=== PATIENT | female | born 1990 | race Caucasian/White ===

== ENCOUNTER 2016-05-31 11:06 | Emergency (ER) | payer OTHER ==
--- NOTE | 2016-05-31 13:49 | DIAGNOSTIC IMAGING REPORT ---
PROCEDURE: US COMPLETE PELVIC W/TRANSVAG INDICATION: PELVIC PAIN TECHNIQUE: Transabdominal and endovaginal jeffries scale and color Doppler sonographic images of the female pelvis were obtained. COMPARISON: None. FINDINGS: TRANSABDOMINAL SCANS: The uterus is of normal size 5.4 x 4.1 x 3.5 cm Kidneys are normal. TRANSVAGINAL SCANS: The uterus is anteverted. Myometrium is normal. The endometrium measures 5.6 mm. Right ovary is normal measuring 3.8 x 1.6 x 1.8 cm The left ovary is normal measuring 2.3 x 1.5 x 1.3 cm. Good flow is present in both ovaries. There is a trace of free fluid. IMPRESSION: 1. Normal uterus and ovaries and kidneys.
--- NOTE | 2016-05-31 14:25 | ED CLINICAL REPORT ---
Clinical Report - Physicians/Mid Levels [facility] [address] [place] [address] 05/31/2016 11:08 Patient: DEBRA DYSON Arrived- By private vehicle. Historian- patient. HISTORY OF PRESENT ILLNESS Chief Complaint: PELVIC PAIN. This started past 2 days and still present. It was gradual in onset and has been constant but is not gone now. The symptoms are described as moderate. Modifying factors- (worsened by nothing. no relieving factors). The patient has had left-sided pelvic pain. No flank pain, missed period(s), vaginal discharge, genital lesions or pain with urination. No urinary frequency. Sexually active. Similar symptoms previously: None. Recent medical care: Not recently seen/assessed. REVIEW OF SYSTEMS No vomiting, diarrhea, fever, difficulty breathing or chest pain. She has had skin rash. All systems otherwise negative, except as recorded above. PAST HISTORY See nurses notes. Additional Surgeries: no known surgeries. Medications: Control Pills 1 pill, daily. Spironolactone Oral, at bedtime (Takes for acne). Allergies: No Known Drug Allergy. SOCIAL HISTORY Never smoker. No alcohol use or drug use. No recent travel. Is a local resident. ADDITIONAL NOTES The nursing notes have been reviewed. PHYSICAL EXAM Vital Signs: 05/31/2016 11:21 BP: 113/76. HR: 81. RR: 16. O2 saturation: 98%. Temp: 99.5 F. Pain level now: 8/10. Blood pressure normal. Oxygen saturation normal. Appearance: Alert. Oriented X3. No acute distress. HEENT: Normal external inspection. ENT: Pharynx normal. Neck: Neck supple. CVS: Heart sounds normal. Respiratory: No respiratory distress. Breath sounds normal. Chest nontender. Abdomen: Soft and nontender. Bowel sounds normal. No mass. : External inspection normal. Speculum exam normal. Bimanual exam normal. (Exam performed with ED devulcanizer head Valeria). Skin: Skin warm and dry. Normal skin color. No rash. Normal skin turgor. Extremities: Extremities nontender. No lower extremity edema. LABS, X-RAYS, AND EKG Pelvic Sonogram: PROCEDURE: US COMPLETE PELVIC W/TRANSVAG INDICATION: PELVIC PAIN TECHNIQUE: Transabdominal and endovaginal jeffries scale and color Doppler sonographic images of the female pelvis were obtained. COMPARISON: None. FINDINGS: TRANSABDOMINAL SCANS: The uterus is of normal size 5.4 x 4.1 x 3.5 cm Kidneys are normal. TRANSVAGINAL SCANS: The uterus is anteverted. Myometrium is normal. The endometrium measures 5.6 mm. Right ovary is normal measuring 3.8 x 1.6 x 1.8 cm The left ovary is normal measuring 2.3 x 1.5 x 1.3 cm. Good flow is present in both ovaries. There is a trace of free fluid. IMPRESSION: 1. Normal uterus and ovaries and kidneys. Laboratory Tests: UA-Culture if indicated: (NII: 05/31/2016 11:30) ( [facility] 05/31/2016 11:58) Final results Test Result Flag Units (Reference) URINE COLOR YELLOW URINE APPEARANCE CLEAR URINE GLUCOSE NEGATIVE (NEGATIVE) URINE BILIRUBIN NEGATIVE (NEGATIVE) URINE KETONE NEGATIVE (NEGATIVE) URINE SPECIFIC GRAVITY <= 1.005 L (1.010-1.030) URINE PH 6.0 (5.0-8.0) URINE PROTEIN NEGATIVE (NEGATIVE) URINE UROBILINOGEN 0.2 EU/dL (0.2-1.0) URINE NITRITE NEGATIVE (NEGATIVE) URINE BLOOD NEGATIVE (NEGATIVE) URINE LEUK ESTERASE POSITIVE (NEGATIVE) URINE RBC NONE SEEN rbc/hpf (0-1) URINE WBC 1-3 wbc/hpf (0-1) URINE EPITHELIAL CELLS 3-5 EPI/hpf (0-5) URINE BACTERIA FEW (1+) (NONE SEEN) URINE COMMENT CULTURE INDICATED URINE CULTURES ARE SET-UP BASED ON THE FOLLOWING CRITERIA:POSITIVE NITRITEPOSITIVE LEUKOCYTE ESTERASEGREATER THAN 10 WHITE BLOOD CELLSMODERATE (2+) OR GREATER BACTERIA Urine: (NII: 05/31/2016 11:30) ( [facility] 05/31/2016 11:51) Final results Test Result Flag Units (Reference) URINE NEGATIVE CBC w Diff: (NII: 05/31/2016 12:05) ( MsgRcvd 05/31/2016 12:32) Final results Test Result Flag Units (Reference) WHITE BLOOD COUNT 6.5 K/uL (4.5-11.5) RED BLOOD COUNT 4.86 M/uL (4.00-5.20) HEMOGLOBIN 13.8 gm/dL (12.0-16.0) HEMATOCRIT 41.9 % (36.0-46.0) MEAN CELL VOLUME 86 fL (80-100) MEAN CORPUSCULAR HGB 29 pg (26-34) MEAN CORPUSCULAR HGB CONC 33 g/dL (31-37) RED CELL DISTRIBUTION WIDTH 13.3 % (11.6-14.8) PLATELET COUNT 289 K/uL (150-400) LYMPH % 43.3 H % (25-40) MONO % 4.5 % (3-14) GRANULOCYTE % 52.2 L (53-90) CMP: (NII: 05/31/2016 12:05) ( MsgRcvd 05/31/2016 12:57) Final results Test Result Flag Units (Reference) GLUCOSE 93 mg/dL (70-110) BUN 12 mg/dL (7-18) CREATININE 0.5 L mg/dL (0.6-1.3) Estimated GFR >60 mL/min Estimated GFR- >60 mL/min Note: Persistent reduction over 3 months in eGFR<60 mL/min/1.73 m2 defines CKD. Patients with eGFR values>=60 mL/min/1.73 m2 may also have CKD if evidence ofpersistent proteinuria. Additional information may be foundat [email or web address]. SODIUM 140 mmol/L (136-145) POTASSIUM 4.4 mmol/L (3.5-5.1) CHLORIDE 105 mmol/L (98-107) CARBON DIOXIDE 25 mmol/L (21-32) CALCIUM 9.5 mg/dL (8.5-10.1) TOTAL PROTEIN 7.5 g/dL (6.4-8.2) ALBUMIN 3.8 g/dL (3.3-5.0) BILIRUBIN, TOTAL 0.3 mg/dL (0.0-1.0) ALKALINE PHOSPHATASE 72 U/L (46-116) AST (SGOT) 16 U/L (15-37) ALT (SGPT) 19 U/L (12-78) BETA HCG, QUANTITATIVE <1 mIU/mL REFERENCE RANGE:Adult Males: <2 mIU/mLNon- Females: <6 mIU/mL Females:Approximate Approximate hCGGestational Age Range (mIU/mL) 0-1 week 0-501-2 weeks 40-3002-3 weeks 100-24678-4 weeks 500-49998-4 months 5,000-200,0002-3 months 10,000-100,0002nd trimester 3,000-50,0003rd trimester 1,000-50,000 2017:[id number]: (NII: 05/31/2016 13:50) ( [facility] 06/03/2016 06:08) Final results SPECIMEN DESCRIPTION: MUCUS Test Result Flag Units (Reference) CHLAMYDIA TRACHOMATIS STEPHANIE Negative NEISSERIA GONORRHOEAE STEPHANIE Negative Performed at: [address] [id number] Tailor Helper: Raphael Martin MD, Phone: [phone] Wet Prep: (NII: 05/31/2016 13:50) ( [facility] 05/31/2016 13:55) Final results SPECIMEN DESCRIPTION: MUCUS Test Result Flag Units (Reference) WET MOUNT CLUE CELLS:: NONE EPITHELIAL CELLS: FEW -- SOURCE?: VAGINAL WHITE BLOOD CELLS: NONE TRICHOMONAS:: NONE -- YEAST:: NONE Culture, Urine: (NII: 05/31/2016 11:30) ( [facility] [place]/02/2016 09:38) Final results Test Result Flag Units (Reference) CULTURE, URINE DATE: 06/02/16 NO SIGNIFICANT ISOLATION: NO SIGNIFICANT ISOLATION PRELIM REPORT: FINAL REPORT . PROGRESS AND PROCEDURES Course of Care: the patient is a pleasant 25-year-old female with no pertinent past medical history presenting for evaluation of left-sided lower abdominal pain. Patient reports that the symptoms had occurred shortly after having intercourse. Patient is concerned for possible ectopic . Last Menstrual period Was at the beginning of the month. Patient reports no other symptoms. Patient reports driving here to the emergency department. We'll avoid any sedating medications at this time as the patient wishes to drive home. Patient is agreeable to treatment plan. Differential diagnosis at this Time includes ovarian cyst, ovarian torsion, ectopic , urinary tract infection,lammatory disease. Laboratory studies including ultrasound and urinalysis have been ordered. Workup does not show any acute Pelvic abnormalities. Wet prep is negative. Patient does have a urinary tract infection. Ultrasound is unremarkable. No signs of ovarian torsion or adnexal masses. Do not feel patient has ectopic or ovarian torsion based on her workup here in the emergency department. Patient also does not have stomach inflammatory disease on examination. patient will be treated for urinary tract infection. I discussed with patient workup, diagnosis, home care, follow-up, and return precautions. All questions answered. The patient expressed understanding of these instructions and was agreeable to them. CLINICAL IMPRESSION Acute pelvic pain. 05/31/2016 11:21 BP: 113/76. HR: 81. RR: 16. O2 saturation: 98%. Temp: 99.5 F. Pain level now: 8/10. Blood pressure normal. Oxygen saturation normal. Acute urinary tract infection with hematuria. INSTRUCTIONS Warnings: GENERAL WARNINGS: Return or contact your physician immediately if your condition worsens or changes unexpectedly, if not improving as expected, or if other problems arise. Specifically return if pain, vomiting, bleeding, breathing difficulty or fever. Your Current Medications: CONTINUE TAKING THE FOLLOWING MEDICATIONS: Control Pills* : 1 pill daily. Spironolactone Oral : at bedtime, Takes for acne. Prescription Medications: Mesa 5 mg / 325 mg tablets: take 1 orally every 6 hours as needed for pain. Dispense twelve (12). No refill. Substitution is permissible. Keflex 500 mg: take 1 capsule orally every 8 hours for 5 days. No refill. Substitution is permissible. (disp 15 caps) Motrin 600 mg tablets: take 1 tablet orally as needed for pain or stiffness. Dispense thirty (30). No refill. Substitution is permissible. Follow-up: Return to the emergency department as needed. Follow up with your doctor in three days. Reason for referral: recheck today's concerns. Summary of care provided to patient via paper. Screening today revealed the patient's blood pressure to be in the normal range. The patient should follow up with a primary care provider for blood pressure management. Understanding of the discharge instructions verbalized by patient. (Electronically signed by Addison Pacheco Dr. 06/06/2016 7:14)
--- NOTE | 2016-05-31 14:25 | ED CLINICAL REPORT ---
Clinical Report - Physicians/Mid Levels [facility] [address] [place] [address] 05/31/2016 11:08 Patient: DEBRA DYSON Arrived- By private vehicle. Historian- patient. HISTORY OF PRESENT ILLNESS Chief Complaint: PELVIC PAIN. This started past 2 days and still present. It was gradual in onset and has been constant but is not gone now. The symptoms are described as moderate. Modifying factors- (worsened by nothing. no relieving factors). The patient has had left-sided pelvic pain. No flank pain, missed period(s), vaginal discharge, genital lesions or pain with urination. No urinary frequency. Sexually active. Similar symptoms previously: None. Recent medical care: Not recently seen/assessed. REVIEW OF SYSTEMS No vomiting, diarrhea, fever, difficulty breathing or chest pain. She has had skin rash. All systems otherwise negative, except as recorded above. PAST HISTORY See nurses notes. Additional Surgeries: no known surgeries. Medications: Control Pills 1 pill, daily. Spironolactone Oral, at bedtime (Takes for acne). Allergies: No Known Drug Allergy. SOCIAL HISTORY Never smoker. No alcohol use or drug use. No recent travel. Is a local resident. ADDITIONAL NOTES The nursing notes have been reviewed. PHYSICAL EXAM Vital Signs: 05/31/2016 11:21 BP: 113/76. HR: 81. RR: 16. O2 saturation: 98%. Temp: 99.5 F. Pain level now: 8/10. Blood pressure normal. Oxygen saturation normal. Appearance: Alert. Oriented X3. No acute distress. HEENT: Normal external inspection. ENT: Pharynx normal. Neck: Neck supple. CVS: Heart sounds normal. Respiratory: No respiratory distress. Breath sounds normal. Chest nontender. Abdomen: Soft and nontender. Bowel sounds normal. No mass. : External inspection normal. Speculum exam normal. Bimanual exam normal. (Exam performed with ED emergency medcl emt Valeria). Skin: Skin warm and dry. Normal skin color. No rash. Normal skin turgor. Extremities: Extremities nontender. No lower extremity edema. LABS, X-RAYS, AND EKG Pelvic Sonogram: PROCEDURE: US COMPLETE PELVIC W/TRANSVAG INDICATION: PELVIC PAIN TECHNIQUE: Transabdominal and endovaginal jeffries scale and color Doppler sonographic images of the female pelvis were obtained. COMPARISON: None. FINDINGS: TRANSABDOMINAL SCANS: The uterus is of normal size 5.4 x 4.1 x 3.5 cm Kidneys are normal. TRANSVAGINAL SCANS: The uterus is anteverted. Myometrium is normal. The endometrium measures 5.6 mm. Right ovary is normal measuring 3.8 x 1.6 x 1.8 cm The left ovary is normal measuring 2.3 x 1.5 x 1.3 cm. Good flow is present in both ovaries. There is a trace of free fluid. IMPRESSION: 1. Normal uterus and ovaries and kidneys. Laboratory Tests: UA-Culture if indicated: (NII: 05/31/2016 11:30) ( [facility] 05/31/2016 11:58) Final results Test Result Flag Units (Reference) URINE COLOR YELLOW URINE APPEARANCE CLEAR URINE GLUCOSE NEGATIVE (NEGATIVE) URINE BILIRUBIN NEGATIVE (NEGATIVE) URINE KETONE NEGATIVE (NEGATIVE) URINE SPECIFIC GRAVITY <= 1.005 L (1.010-1.030) URINE PH 6.0 (5.0-8.0) URINE PROTEIN NEGATIVE (NEGATIVE) URINE UROBILINOGEN 0.2 EU/dL (0.2-1.0) URINE NITRITE NEGATIVE (NEGATIVE) URINE BLOOD NEGATIVE (NEGATIVE) URINE LEUK ESTERASE POSITIVE (NEGATIVE) URINE RBC NONE SEEN rbc/hpf (0-1) URINE WBC 1-3 wbc/hpf (0-1) URINE EPITHELIAL CELLS 3-5 EPI/hpf (0-5) URINE BACTERIA FEW (1+) (NONE SEEN) URINE COMMENT CULTURE INDICATED URINE CULTURES ARE SET-UP BASED ON THE FOLLOWING CRITERIA:POSITIVE NITRITEPOSITIVE LEUKOCYTE ESTERASEGREATER THAN 10 WHITE BLOOD CELLSMODERATE (2+) OR GREATER BACTERIA Urine: (NII: 05/31/2016 11:30) ( [facility] 05/31/2016 11:51) Final results Test Result Flag Units (Reference) URINE NEGATIVE CBC w Diff: (NII: 05/31/2016 12:05) ( MsgRcvd 05/31/2016 12:32) Final results Test Result Flag Units (Reference) WHITE BLOOD COUNT 6.5 K/uL (4.5-11.5) RED BLOOD COUNT 4.86 M/uL (4.00-5.20) HEMOGLOBIN 13.8 gm/dL (12.0-16.0) HEMATOCRIT 41.9 % (36.0-46.0) MEAN CELL VOLUME 86 fL (80-100) MEAN CORPUSCULAR HGB 29 pg (26-34) MEAN CORPUSCULAR HGB CONC 33 g/dL (31-37) RED CELL DISTRIBUTION WIDTH 13.3 % (11.6-14.8) PLATELET COUNT 289 K/uL (150-400) LYMPH % 43.3 H % (25-40) MONO % 4.5 % (3-14) GRANULOCYTE % 52.2 L (53-90) CMP: (NII: 05/31/2016 12:05) ( MsgRcvd 05/31/2016 12:57) Final results Test Result Flag Units (Reference) GLUCOSE 93 mg/dL (70-110) BUN 12 mg/dL (7-18) CREATININE 0.5 L mg/dL (0.6-1.3) Estimated GFR >60 mL/min Estimated GFR- >60 mL/min Note: Persistent reduction over 3 months in eGFR<60 mL/min/1.73 m2 defines CKD. Patients with eGFR values>=60 mL/min/1.73 m2 may also have CKD if evidence ofpersistent proteinuria. Additional information may be foundat [email or web address]. SODIUM 140 mmol/L (136-145) POTASSIUM 4.4 mmol/L (3.5-5.1) CHLORIDE 105 mmol/L (98-107) CARBON DIOXIDE 25 mmol/L (21-32) CALCIUM 9.5 mg/dL (8.5-10.1) TOTAL PROTEIN 7.5 g/dL (6.4-8.2) ALBUMIN 3.8 g/dL (3.3-5.0) BILIRUBIN, TOTAL 0.3 mg/dL (0.0-1.0) ALKALINE PHOSPHATASE 72 U/L (46-116) AST (SGOT) 16 U/L (15-37) ALT (SGPT) 19 U/L (12-78) BETA HCG, QUANTITATIVE <1 mIU/mL REFERENCE RANGE:Adult Males: <2 mIU/mLNon- Females: <6 mIU/mL Females:Approximate Approximate hCGGestational Age Range (mIU/mL) 0-1 week 0-501-2 weeks 40-3002-3 weeks 100-30892-7 weeks 500-45397-7 months 5,000-200,0002-3 months 10,000-100,0002nd trimester 3,000-50,0003rd trimester 1,000-50,000 2017:[id number]: (NII: 05/31/2016 13:50) ( [facility] 06/03/2016 06:08) Final results SPECIMEN DESCRIPTION: MUCUS Test Result Flag Units (Reference) CHLAMYDIA TRACHOMATIS STEPHANIE Negative NEISSERIA GONORRHOEAE STEPHANIE Negative Performed at: [address] [id number] Agricultural Loan Officer: Raphael Martin MD, Phone: [phone] Wet Prep: (NII: 05/31/2016 13:50) ( [facility] [place] 13:55) Final results SPECIMEN DESCRIPTION: MUCUS Test Result Flag Units (Reference) WET MOUNT CLUE CELLS:: NONE EPITHELIAL CELLS: FEW -- SOURCE?: VAGINAL WHITE BLOOD CELLS: NONE TRICHOMONAS:: NONE -- YEAST:: NONE Culture, Urine: (NII: 05/31/2016 11:30) ( [facility] [place] 09:38) Final results Test Result Flag Units (Reference) CULTURE, URINE DATE: 06/02/16 NO SIGNIFICANT ISOLATION: NO SIGNIFICANT ISOLATION PRELIM REPORT: FINAL REPORT . PROGRESS AND PROCEDURES Course of Care: the patient is a pleasant 25-year-old female with no pertinent past medical history presenting for evaluation of left-sided lower abdominal pain. Patient reports that the symptoms had occurred shortly after having intercourse. Patient is concerned for possible ectopic . Last Menstrual period Was at the beginning of the month. Patient reports no other symptoms. Patient reports driving here to the emergency department. We'll avoid any sedating medications at this time as the patient wishes to drive home. Patient is agreeable to treatment plan. Differential diagnosis at this Time includes ovarian cyst, ovarian torsion, ectopic , urinary tract infection,lammatory disease. Laboratory studies including ultrasound and urinalysis have been ordered. Workup does not show any acute Pelvic abnormalities. Wet prep is negative. Patient does have a urinary tract infection. Ultrasound is unremarkable. No signs of ovarian torsion or adnexal masses. Do not feel patient has ectopic or ovarian torsion based on her workup here in the emergency department. Patient also does not have stomach inflammatory disease on examination. patient will be treated for urinary tract infection. I discussed with patient workup, diagnosis, home care, follow-up, and return precautions. All questions answered. The patient expressed understanding of these instructions and was agreeable to them. CLINICAL IMPRESSION Acute pelvic pain. 05/31/2016 11:21 BP: 113/76. HR: 81. RR: 16. O2 saturation: 98%. Temp: 99.5 F. Pain level now: 8/10. Blood pressure normal. Oxygen saturation normal. Acute urinary tract infection with hematuria. INSTRUCTIONS Warnings: GENERAL WARNINGS: Return or contact your physician immediately if your condition worsens or changes unexpectedly, if not improving as expected, or if other problems arise. Specifically return if pain, vomiting, bleeding, breathing difficulty or fever. Your Current Medications: CONTINUE TAKING THE FOLLOWING MEDICATIONS: Control Pills* : 1 pill daily. Spironolactone Oral : at bedtime, Takes for acne. Prescription Medications: Jerome 5 mg / 325 mg tablets: take 1 orally every 6 hours as needed for pain. Dispense twelve (12). No refill. Substitution is permissible. Keflex 500 mg: take 1 capsule orally every 8 hours for 5 days. No refill. Substitution is permissible. (disp 15 caps) Motrin 600 mg tablets: take 1 tablet orally as needed for pain or stiffness. Dispense thirty (30). No refill. Substitution is permissible. Follow-up: Return to the emergency department as needed. Follow up with your doctor in three days. Reason for referral: recheck today's concerns. Summary of care provided to patient via paper. Screening today revealed the patient's blood pressure to be in the normal range. The patient should follow up with a primary care provider for blood pressure management. Understanding of the discharge instructions verbalized by patient. (Electronically signed by Addison Pacheco Dr. 06/06/2016 7:14)
--- NOTE | 2016-05-31 14:26 | ED NURSING NOTES ---
Clinical Report - Nurses [facility] [place] [address] 05/31/2016 11:08 [facility] [id number] TRIAGE Triage time 11:20 May 31 2016. Acuity: LEVEL 3. Chief Complaint: ABDOMINAL PAIN. Alert. NICOLE COMA SCORE: [place] Coma Scale: 15- eyes open spontaneously (4); best verbal response- oriented x 4 (5); best motor response- obeys commands (6). --11:33 Toñito Cartagena R.N. 11:21 05/31/16. BP: 113/76. HR: 81. RR: 16. O2 saturation: 98% on room air. Temp: 99.5 F (oral). Pain level now: 8/10. Additional comments: Dull pain but intensifies. --11:33 Toñito Cartagena R.N. Weight: 53 kg. Height/Length: 64 inches Per Patient. BMI: 20.1. --11:26 Toñito Cartagena R.N. Medications Control Pills 1 pill, daily. Spironolactone Oral, at bedtime (Takes for acne). --11:25 Toñito Cartagena R.N. Medication/allergy information source: the patient. --11:33 Toñito Cartagena R.N. Allergies No Known Drug Allergy. --11:27 Toñito Cartagena R.N. History Arrived by private vehicle. Historian: patient. Primary physician (Blanquita Rivera, [facility]). ( LLQ abdominal pain for the last 2 days.). Onset. (about 2 days ago). ( Just getting over a "cold." Last BM today). Last oral intake by patient was (about 5 hours ago). 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 Symptoms did not improve after treatment. PAST MEDICAL HX: Immunizations: status is unknown. Last normal menstrual period was 3 weeks ago. SURGERY HX: No history of previous surgery. SOCIAL HX: Never smoker. History of drug use: marijuana. No alcohol use. No recent travel. No infectious disease exposure. ABUSE ASSESSMENT: No report of abuse. FALL RISK ASSESSMENT: Fall risk assessment completed. No fall risk identified. NUTRITIONAL RISK ASSESSMENT: The nutritional risk assessment revealed no deficiencies. LEARNING NEEDS ASSESSMENT: The learning needs assessment revealed no barriers. SKIN INTEGRITY ASSESSMENT: Skin integrity risk assessment completed. No skin integrity risk identified. --11:33 Toñito Cartagena R.N. PROBLEMS: Back Pain. Exercise-induced asthma. --11:28 Toñito Cartagena R.N. Interventions ID band on patient. To treatment room. --11:33 Toñito Cartagena R.N. PHYSICAL ASSESSMENT Ambulatory to room. GENERAL / NEURO / PSYCH: Alert. Oriented X 4. HEENT: Mucous membranes are pink. RESPIRATORY: Respirations not labored. CVS: Cardiac rhythm: (RRR). Capillary refill less than 2 seconds. GI / : Abdominal tenderness in the left lower quadrant. SKIN: Skin is warm and dry. --11:34 Toñito Cartagena R.N. NURSING PROGRESS NOTES Patient gowned. Reassurance given. Patient identifiers checked. Call light placed in reach. Side rails up x 1. Bed placed in lowest position. Brakes of bed on. Patient ready for evaluation- chart flagged and ED physician notified. --11:35 Toñito Cartagena R.N. 11:40 05/31/16. Checked patient name, birthdate and medical record number: patient confirmed. Instructions provided to collect clean catch urine and patient verbalized understanding. Clean catch urine collected with return of yellow-colored clear urine; odor is normal; sample sent to lab for urinalysis, culture and HCG. Specimen labeled in the presence of the patient. --11:43 Toñito Cartagena R.N. PELVIC EXAM: Pelvic exam performed by ED physician. Assisted by one tech. Preparation: pelvic tray. Procedure. Specimens collected and sent to lab: GC, chlamydia and wet prep. Total time of assist / procedure: 15 minutes. --13:50 Valeria Portillo ER Tech1 12:00 05/31/2016 Tylenol (Acetaminophen) PO 650 mg given. Allergies verified and confirmed 5 rights. --14:46 Toñito Cartagena R.N. 14:14 05/31/2016 Site #1 started via IV in the right antecubital space with an 20g angiocath, with aseptic technique and good blood return; one attempt. Saline lock flushed with saline. --14:39 Jase Sands R.N. 14:39 05/31/2016 Toradol IVP 30 mg given over 2 minute(s) via site #1. Allergies verified and confirmed 5 rights. IV patency established. IV site checked: no pain, redness, or swelling. IV flushed thoroughly pre- and post-medication administration. --14:39 Jase Sands R.N. 14:43 05/31/2016 Keflex (Cephalexin) PO Tablets 500 mg given. Allergies verified and confirmed 5 rights. --14:43 Jase Sands R.N. DISPOSITION / DISCHARGE Departure time: 14:49 May 31 2016. Condition at departure: improved. No learning barriers present. Discharge instructions provided and reviewed with the patient. Reviewed warnings. Reviewed medication(s). Treatments reviewed. Reviewed referrals. Work note given. Patient verbalized understanding. Written instructions provided in Lithuanian. The patient was discharged home. She left the Emergency Department ambulatory and via private vehicle. Patient driving. --14:49 Jase Sands R.N. 14:48 05/31/16. BP: 108/63. HR: 76. RR: 18. O2 saturation: 99%. Temp: 98.6 F. Pain level now 6/10. --14:49 Jase Sands R.N. 14:44 05/31/2016 Site #1 removed upon discharge. Catheter intact. Pressure dressing applied. --14:49 Jase Sands R.N. Locked/Released at 05/31/2016 19:20 by Jase Sands R.N.
--- NOTE | 2016-05-31 14:26 | ED ORDER SUMMARY ---
..... Patient: DEBRA DYSON OrderSheet [facility] VisitID: [id number] [place] [address] 25y, F Registration Date/Time: 05/31/2016 ORDER SHEET Weight: 53.0 kg Allergies: No Known Drug Allergy GENERAL ORDERS: UA-Culture if indicated Urgent (11:35 05/31/2016 JRtigistelli R.N. per protocol) (Ack 11:50 LNations ER Tech1) (12:03 JRomanelli R.N.) Urine Urgent (11:35 05/31/2016 JRomanelli R.N. per protocol) (Ack 11:51 LNations ER Tech1) (Cancelled: Duplicate Order11:57 Pelon [place]) US Pelvic Complete w Transvag Urgent (11:56 05/31/2016 Pelon [place]) (Ack 11:58 LNations ER Tech1) (13:03 LNations ER Tech1) CBC w Diff Urgent (11:57 05/31/2016 Pelon [place]) (Ack 11:58 LNations ER Tech1) (14:47 Sarah R.N.) CMP Urgent (11:57 05/31/2016 Pelon [place]) (Ack 11:58 LNations ER Tech1) (14:47 omanelli R.N.) Serum Quantitative Urgent (11:57 05/31/2016 Pelon [place]) (Ack 11:58 LNations ER Tech1) (14:48 Sarah R.N.) Pulse oximeter (11:57 05/31/2016 Pelon [place]) (13:11 Marianne R.N.) Wet Prep (Vaginal) (mucus) Urgent (11:57 05/31/2016 Pelon [place]) (Ack 11:59 LNations ER Tech1) (13:49 LNations ER Tech1) GC/Chlamydia (Cervix) (mucus) Urgent (11:57 05/31/2016 Pelon [place]) (Ack 11:59 LNations ER Tech1) (13:49 LNations ER Tech1) Pelvic Exam Setup (13:37 05/31/2016 Pelon [place]) (Ack 13:49 LNations ER Tech1) (13:49 LNations ER Tech1) MEDICATION ORDERS: Tylenol PO 650 mg (NOW) (11:56 05/31/2016 Pelon [place]) (Ack 13:10 Marianne Sandoval) (14:46 Sarah Trujillo.NDaryn) Keflex PO 500 mg (NOW) (14:23 05/31/2016 Pelon [place]) (14:43 LWmesha R.N.) IV FLUIDS: IV Saline Lock (11:57 05/31/2016 Pelon [place]) (Ack 13:10 Marianne Sandoval) Toradol IV 30 mg (NOW) (14:19 05/31/2016 Pelon [place]) (14:39 LWhalpoly R.N.) ORDER SHEET NOTES: [Electronically signed by Jase Sands R.N. (19:19 05/31/2016)] [Electronically signed by Addison Pacheco Dr. (07:14 06/06/2016)] [Electronically locked/signed by Jase Sands R.N. (19:19 05/31/2016)]
--- NOTE | 2016-05-31 14:26 | ED ORDER SUMMARY ---
..... Patient: DEBRA DYSON OrderSheet [facility] VisitID: [id number] [place] [address] 25y, F Registration Date/Time: 05/31/2016 ORDER SHEET Weight: 53.0 kg Allergies: No Known Drug Allergy GENERAL ORDERS: UA-Culture if indicated Urgent (11:35 05/31/2016 JRtigistelli R.N. per protocol) (Ack 11:50 LNations ER Tech1) (12:03 JRomanelli R.N.) Urine Urgent (11:35 05/31/2016 JRomanelli R.N. per protocol) (Ack 11:51 LNations ER Tech1) (Cancelled: Duplicate Order11:57 Pelon [place]) US Pelvic Complete w Transvag Urgent (11:56 05/31/2016 Pelon [place]) (Ack 11:58 LNations ER Tech1) (13:03 LNations ER Tech1) CBC w Diff Urgent (11:57 05/31/2016 Pelon [place]) (Ack 11:58 LNations ER Tech1) (14:47 Sarah R.N.) CMP Urgent (11:57 05/31/2016 Pelon [place]) (Ack 11:58 LNations ER Tech1) (14:47 omanelli R.N.) Serum Quantitative Urgent (11:57 05/31/2016 Pelon [place]) (Ack 11:58 LNations ER Tech1) (14:48 Sarah R.N.) Pulse oximeter (11:57 05/31/2016 Pelon [place]) (13:11 Marianne R.N.) Wet Prep (Vaginal) (mucus) Urgent (11:57 05/31/2016 Pelon [place]) (Ack 11:59 LNations ER Tech1) (13:49 LNations ER Tech1) GC/Chlamydia (Cervix) (mucus) Urgent (11:57 05/31/2016 Pelon [place]) (Ack 11:59 LNations ER Tech1) (13:49 LNations ER Tech1) Pelvic Exam Setup (13:37 05/31/2016 Pelon [place]) (Ack 13:49 LNations ER Tech1) (13:49 LNations ER Tech1) MEDICATION ORDERS: Tylenol PO 650 mg (NOW) (11:56 05/31/2016 Pelon [place]) (Ack 13:10 Marianne Sandoval) (14:46 Sarah Trujillo.NDaryn) Keflex PO 500 mg (NOW) (14:23 05/31/2016 Pelon [place]) (14:43 LWmesha R.N.) IV FLUIDS: IV Saline Lock (11:57 05/31/2016 Pelon [place]) (Ack 13:10 Marianne Sandoval) Toradol IV 30 mg (NOW) (14:19 05/31/2016 Pelon [place]) (14:39 LWhalpoly R.N.) ORDER SHEET NOTES: [Electronically signed by Jase Sands R.N. (19:19 05/31/2016)] [Electronically signed by Addison Pacheco Dr. (07:14 06/06/2016)] [Electronically locked/signed by Jase Sands R.N. (19:19 05/31/2016)]
--- NOTE | 2016-05-31 14:26 | ED NURSING NOTES ---
Clinical Report - Nurses [facility] [place] [address] 05/31/2016 11:08 [facility] [id number] TRIAGE Triage time 11:20 May 31 2016. Acuity: LEVEL 3. Chief Complaint: ABDOMINAL PAIN. Alert. NICOLE COMA SCORE: [place] Coma Scale: 15- eyes open spontaneously (4); best verbal response- oriented x 4 (5); best motor response- obeys commands (6). --11:33 Toñito Cartagena R.N. 11:21 05/31/16. BP: 113/76. HR: 81. RR: 16. O2 saturation: 98% on room air. Temp: 99.5 F (oral). Pain level now: 8/10. Additional comments: Dull pain but intensifies. --11:33 Toñito Cartagena R.N. Weight: 53 kg. Height/Length: 64 inches Per Patient. BMI: 20.1. --11:26 Toñito Cartagena R.N. Medications Control Pills 1 pill, daily. Spironolactone Oral, at bedtime (Takes for acne). --11:25 Toñito Cartagena R.N. Medication/allergy information source: the patient. --11:33 Toñito Cartagena R.N. Allergies No Known Drug Allergy. --11:27 Toñito Cartagena R.N. History Arrived by private vehicle. Historian: patient. Primary physician (Blanquita Rivera, [facility]). ( LLQ abdominal pain for the last 2 days.). Onset. (about 2 days ago). ( Just getting over a "cold." Last BM today). Last oral intake by patient was (about 5 hours ago). 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 Symptoms did not improve after treatment. PAST MEDICAL HX: Immunizations: status is unknown. Last normal menstrual period was 3 weeks ago. SURGERY HX: No history of previous surgery. SOCIAL HX: Never smoker. History of drug use: marijuana. No alcohol use. No recent travel. No infectious disease exposure. ABUSE ASSESSMENT: No report of abuse. FALL RISK ASSESSMENT: Fall risk assessment completed. No fall risk identified. NUTRITIONAL RISK ASSESSMENT: The nutritional risk assessment revealed no deficiencies. LEARNING NEEDS ASSESSMENT: The learning needs assessment revealed no barriers. SKIN INTEGRITY ASSESSMENT: Skin integrity risk assessment completed. No skin integrity risk identified. --11:33 Toñito Cartagena R.N. PROBLEMS: Back Pain. Exercise-induced asthma. --11:28 Toñito Cartagena R.N. Interventions ID band on patient. To treatment room. --11:33 Toñito Cartagena R.N. PHYSICAL ASSESSMENT Ambulatory to room. GENERAL / NEURO / PSYCH: Alert. Oriented X 4. HEENT: Mucous membranes are pink. RESPIRATORY: Respirations not labored. CVS: Cardiac rhythm: (RRR). Capillary refill less than 2 seconds. GI / : Abdominal tenderness in the left lower quadrant. SKIN: Skin is warm and dry. --11:34 Toñito Cartagena R.N. NURSING PROGRESS NOTES Patient gowned. Reassurance given. Patient identifiers checked. Call light placed in reach. Side rails up x 1. Bed placed in lowest position. Brakes of bed on. Patient ready for evaluation- chart flagged and ED physician notified. --11:35 Toñito Cartagena R.N. 11:40 05/31/16. Checked patient name, birthdate and medical record number: patient confirmed. Instructions provided to collect clean catch urine and patient verbalized understanding. Clean catch urine collected with return of yellow-colored clear urine; odor is normal; sample sent to lab for urinalysis, culture and HCG. Specimen labeled in the presence of the patient. --11:43 Toñito Cartagena R.N. PELVIC EXAM: Pelvic exam performed by ED physician. Assisted by one tech. Preparation: pelvic tray. Procedure. Specimens collected and sent to lab: GC, chlamydia and wet prep. Total time of assist / procedure: 15 minutes. --13:50 Valeria Portillo ER Tech1 12:00 05/31/2016 Tylenol (Acetaminophen) PO 650 mg given. Allergies verified and confirmed 5 rights. --14:46 Toñito Cartagena R.N. 14:14 05/31/2016 Site #1 started via IV in the right antecubital space with an 20g angiocath, with aseptic technique and good blood return; one attempt. Saline lock flushed with saline. --14:39 Jase Sands R.N. 14:39 05/31/2016 Toradol IVP 30 mg given over 2 minute(s) via site #1. Allergies verified and confirmed 5 rights. IV patency established. IV site checked: no pain, redness, or swelling. IV flushed thoroughly pre- and post-medication administration. --14:39 Jase Sands R.N. 14:43 05/31/2016 Keflex (Cephalexin) PO Tablets 500 mg given. Allergies verified and confirmed 5 rights. --14:43 Jase Snads R.N. DISPOSITION / DISCHARGE Departure time: 14:49 May 31 2016. Condition at departure: improved. No learning barriers present. Discharge instructions provided and reviewed with the patient. Reviewed warnings. Reviewed medication(s). Treatments reviewed. Reviewed referrals. Work note given. Patient verbalized understanding. Written instructions provided in [place]. The patient was discharged home. She left the Emergency Department ambulatory and via private vehicle. Patient driving. --14:49 Jase Sands R.N. 14:48 05/31/16. BP: 108/63. HR: 76. RR: 18. O2 saturation: 99%. Temp: 98.6 F. Pain level now 6/10. --14:49 Jase Sands R.N. 14:44 05/31/2016 Site #1 removed upon discharge. Catheter intact. Pressure dressing applied. --14:49 Jase Sands R.N. Locked/Released at 05/31/2016 19:20 by Jase Sands R.N.
--- NOTE | 2016-06-06 07:15 | ED DISCHARGE INSTRUCTIONS ---
Patient: DEBRA DYSON General Instructions [facility] VisitID: [id number] [place] [address] 25y, F Registration Date/Time: 05/31/2016 Acute pelvic pain. 05/31/2016 11:21 BP: 113/76. HR: 81. RR: 16. O2 saturation: 98%. Temp: 99.5 F. Pain level now: 810. Blood pressure normal. Oxygen saturation normal. Acute urinary tract infection with hematuria. INSTRUCTIONS Warnings: GENERAL WARNINGS: Return or contact your physician immediately if your condition worsens or changes unexpectedly, if not improving as expected, or if other problems arise. Specifically return if pain, vomiting, bleeding, breathing difficulty or fever. Your Current Medications: CONTINUE TAKING THE FOLLOWING MEDICATIONS: Control Pills* : 1 pill daily. Spironolactone Oral : at bedtime, Takes for acne. Prescription Medications: [place] 5 mg / 325 mg tablets: take 1 orally every 6 hours as needed for pain. Dispense twelve (12). No refill. Substitution is permissible. Keflex 500 mg: take 1 capsule orally every 8 hours for 5 days. No refill. Substitution is permissible. (disp 15 caps) Motrin 600 mg tablets: take 1 tablet orally as needed for pain or stiffness. Dispense thirty (30). No refill. Substitution is permissible. Follow-up: Return to the emergency department as needed. Follow up with your doctor in three days. Reason for referral: recheck today's concerns. Summary of care provided to patient via paper. Screening today revealed the patient's blood pressure to be in the normal range. The patient should follow up with a primary care provider for blood pressure management. Understanding of the discharge instructions verbalized by patient. ADDITIONAL INFORMATION Pelvic Pain, Uncertain Cause Based on your visit today, the exact cause of your pelvic pain is not certain. But your condition does not appear to be serious at this time. However, the signs of a serious problem may take more time to appear. Therefore, it is important for you to watch for any new symptoms or worsening of your condition. Home Care: Rest until you are feeling better. Avoid sexual intercourse until your pain goes away. You may use acetaminophen (Tylenol) or ibuprofen (Motrin, Advil) to control pain, unless another medicine was prescribed. [NOTE: If you have chronic liver or kidney disease or ever had a stomach ulcer or GI bleeding, talk with your doctor before using these medicines.] Follow Up with your doctor as advised. If a culture test was taken, call in two days for the results. If the culture is positive, you will be given more advice at that time. Otherwise, follow-up with your doctor or this facility as instructed. Get Prompt Medical Attention if any of the following occur: Fever of 100.4F (38C) or higher, or as directed by your healthcare provider Vaginal discharge Worsening pain Weakness, dizziness or fainting Unexpected vaginal bleeding or passage of jeffries or white tissue from the vagina Pain that moves to the right lower abdomen Bladder Infection,Female (Adult) A bladder infection ("cystitis" or "UTI") usually causes a constant urge to urinate and a burning when passing urine. Urine may be cloudy, smelly or dark. There may be pain in the lower abdomen. A bladder infection occurs when bacteria from the vaginal area enter the bladder opening (urethra). This can occur from sexual intercourse, wearing tight clothing, dehydration and other factors. Home Care: Drink lots of fluids (at least 6-8 glasses a day, unless you must restrict fluids for other medical reasons). This will force the medicine into your urinary system and flush the bacteria out of your body. Avoid sexual intercourse until your symptoms are gone. Avoid caffeine, alcohol and spicy foods. These can irritate the bladder. A bladder infection is treated with antibiotics. You may also be given Pyridium (generic = phenazopyridine) to reduce the burning sensation. This medicine will cause your urine to become a bright orange color. The orange urine may stain clothing. You may wear a pad or panty-liner to protect clothing. Preventing Future Infections: Always wipe from front to back after a bowel movement. Keep the genital area clean and dry. Drink plenty of fluids each day to avoid dehydration. Both sexual partners should wash before intercourse. Urinate right after intercourse to flush out the bladder. Wear cotton underwear and cotton-lined panty hose; avoid tight-fitting pants. If you are on control pills and are having frequent bladder infections, discuss with your doctor. Follow Up: Return to this facility or see your doctor if ALL symptoms are not gone after three days of treatment. Get Prompt Medical Attention if any of the following occur: Fever of 100.4F (38C) or higher, or as directed by your healthcare provider No improvement by the third day of treatment Increasing back or abdominal pain Repeated vomiting; unable to keep medicine down Weakness, dizziness or fainting Vaginal discharge Pain, redness or swelling in the labia (outer vaginal area) Hydrocodone Bitartrate, Acetaminophen Oral tablet What is this medicine? ACETAMINOPHEN; HYDROCODONE (a set a SHYAM gayatri fen; josr droe KOE done) is a pain reliever. It is used to treat mild to moderate pain. How should I use this medicine? Take this medicine by mouth. Swallow it with a full glass of water. Follow the directions on the prescription label. If the medicine upsets your stomach, take the medicine with food or milk. Do not take more than you are told to take. Talk to your automotive design layout drafter regarding the use of this medicine in children. This medicine is not approved for use in children. What side effects may I notice from receiving this medicine? Side effects that you should report to your doctor or health home care manager rn as soon as possible: allergic reactions like skin rash, itching or hives, swelling of the face, lips, or tongue breathing problems confusion feeling faint or lightheaded, falls stomach pain yellowing of the eyes or skin Side effects that usually do not require medical attention (report to your doctor or health home care manager rn if they continue or are bothersome): nausea, vomiting stomach upset What may interact with this medicine? alcohol antihistamines isoniazid medicines for depression, anxiety, or psychotic disturbances medicines for sleep muscle relaxants naltrexone narcotic medicines (opiates) for pain phenobarbital ritonavir tramadol What if I miss a dose? If you miss a dose, take it as soon as you can. If it is almost time for your next dose, take only that dose. Do not take double or extra doses. Where should I keep my medicine? Keep out of the reach of children. This medicine can be abused. Keep your medicine in a safe place to protect it from theft. Do not share this medicine with anyone. Selling or giving away this medicine is dangerous and against the law. Store at room temperature between 15 and 30 degrees C (59 and 86 degrees F). Protect from light. Keep container tightly closed. Throw away any unused medicine after the expiration date. Discard unused medicine and used packaging carefully. Pets and children can be harmed if they find used or lost packages. What should I tell my health care provider before I take this medicine? They need to know if you have any of these conditions: brain tumor Crohn's disease, inflammatory bowel disease, or ulcerative colitis drink more than 3 alcohol-containing drinks per day drug abuse or addiction head injury heart or circulation problems kidney disease or problems going to the bathroom liver disease lung disease, asthma, or breathing problems an unusual or allergic reaction to acetaminophen, hydrocodone, other opioid analgesics, other medicines, foods, dyes, or preservatives or trying to get breast-feeding What should I watch for while using this medicine? Tell your doctor or health home care manager rn if your pain does not go away, if it gets worse, or if you have new or a different type of pain. You may develop tolerance to the medicine. Tolerance means that you will need a higher dose of the medicine for pain relief. Tolerance is normal and is expected if you take the medicine for a long time. Do not suddenly stop taking your medicine because you may develop a severe reaction. Your body becomes used to the medicine. This does NOT mean you are addicted. Addiction is a behavior related to getting and using a drug for a non-medical reason. If you have pain, you have a medical reason to take pain medicine. Your doctor will tell you how much medicine to take. If your doctor wants you to stop the medicine, the dose will be slowly lowered over time to avoid any side effects. You may get drowsy or dizzy when you first start taking the medicine or change doses. Do not drive, use machinery, or do anything that may be dangerous until you know how the medicine affects you. Stand or sit up slowly. There are different types of narcotic medicines (opiates) for pain. If you take more than one type at the same time, you may have more side effects. Give your health care provider a list of all medicines you use. Your doctor will tell you how much medicine to take. Do not take more medicine than directed. Call emergency for help if you have problems breathing. The medicine will cause constipation. Try to have a bowel movement at least every 2 to 3 days. If you do not have a bowel movement for 3 days, call your doctor or health home care manager rn. Too much acetaminophen can be very dangerous. Do not take Tylenol (acetaminophen) or medicines that contain acetaminophen with this medicine. Many non-prescription medicines contain acetaminophen. Always read the labels carefully. Cephalexin Monohydrate Oral tablet What is this medicine? CEPHALEXIN (sef a OC in) is a cephalosporin antibiotic. It is used to treat certain kinds of bacterial infections It will not work for colds, flu, or other viral infections. How should I use this medicine? Take this medicine by mouth with a full glass of water. Follow the directions on the prescription label. This medicine can be taken with or without food. Take your medicine at regular intervals. Do not take your medicine more often than directed. Take all of your medicine as directed even if you think you are better. Do not skip doses or stop your medicine early. Talk to your automotive design layout drafter regarding the use of this medicine in children. While this drug may be prescribed for selected conditions, precautions do apply. What side effects may I notice from receiving this medicine? Side effects that you should report to your doctor or health home care manager rn as soon as possible: allergic reactions like skin rash, itching or hives, swelling of the face, lips, or tongue breathing problems pain or trouble passing urine redness, blistering, peeling or loosening of the skin, including inside the mouth severe or watery diarrhea unusually weak or tired yellowing of the eyes, skin Side effects that usually do not require medical attention (report to your doctor or health home care manager rn if they continue or are bothersome): gas or heartburn genital or anal irritation headache joint or muscle pain nausea, vomiting What may interact with this medicine? probenecid some other antibiotics What if I miss a dose? If you miss a dose, take it as soon as you can. If it is almost time for your next dose, take only that dose. Do not take double or extra doses. There should be at least 4 to 6 hours between doses. Where should I keep my medicine? Keep out of the reach of children. Store at room temperature between 59 and 86 degrees F (15 and 30 degrees C). Throw away any unused medicine after the expiration date. What should I tell my health care provider before I take this medicine? They need to know if you have any of these conditions: kidney disease stomach or intestine problems, especially colitis an unusual or allergic reaction to cephalexin, other cephalosporins, penicillins, other antibiotics, medicines, foods, dyes or preservatives or trying to get breast-feeding What should I watch for while using this medicine? Tell your doctor or health home care manager rn if your symptoms do not begin to improve in a few days. Do not treat diarrhea with over the counter products. Contact your doctor if you have diarrhea that lasts more than 2 days or if it is severe and watery. If you have diabetes, you may get a false-positive result for sugar in your urine. Check with your doctor or health home care manager rn. Ibuprofen Oral tablet What is this medicine? IBUPROFEN (eye BYOO proe fen) is a non-steroidal anti-inflammatory drug (NSAID). It is used for dental pain, fever, headaches or migraines, osteoarthritis, rheumatoid arthritis, or painful monthly periods. It can also relieve minor aches and pains caused by a cold, flu, or sore throat. How should I use this medicine? Take this medicine by mouth with a glass of water. Follow the directions on the prescription label. Take this medicine with food if your stomach gets upset. Try to not lie down for at least 10 minutes after you take the medicine. Take your medicine at regular intervals. Do not take your medicine more often than directed. A special MedGuide will be given to you by the pharmacist with each prescription and refill. Be sure to read this information carefully each time. Talk to your automotive design layout drafter regarding the use of this medicine in children. Special care may be needed. What side effects may I notice from receiving this medicine? Side effects that you should report to your doctor or health home care manager rn as soon as possible: allergic reactions like skin rash, itching or hives, swelling of the face, lips, or tongue black or bloody stools, blood in the urine or in vomit breathing problems changes in vision chest pain general ill feeling or flu-like symptoms nausea or vomiting redness, blistering, peeling or loosening of the skin, including inside the mouth slurred speech or weakness on one side of the body stomach pain unexplained weight gain or swelling unusually weak or tired yellowing of eyes or skin Side effects that usually do not require medical attention (report to your doctor or health home care manager rn if they continue or are bothersome): constipation or diarrhea dizziness gas or heartburn stomach upset What may interact with this medicine? Do not take this medicine with any of the following medications: cidofovir ketorolac methotrexate pemetrexed This medicine may also interact with the following medications: alcohol aspirin diuretics lithium other drugs for inflammation like prednisone warfarin What if I miss a dose? If you miss a dose, take it as soon as you can. If it is almost time for your next dose, take only that dose. Do not take double or extra doses. Where should I keep my medicine? Keep out of the reach of children. Store at room temperature between 15 and 30 degrees C (59 and 86 degrees F). Keep container tightly closed. Throw away any unused medicine after the expiration date. What should I tell my health care provider before I take this medicine? They need to know if you have any of these conditions: asthma cigarette smoker drink more than 3 alcohol containing drinks a day heart disease or circulation problems such as heart failure or leg edema (fluid retention) high blood pressure kidney disease liver disease stomach bleeding or ulcers an unusual or allergic reaction to ibuprofen, aspirin, other NSAIDS, other medicines, foods, dyes, or preservatives or trying to get breast-feeding What should I watch for while using this medicine? Tell your doctor or healthcare professional if your symptoms do not start to get better or if they get worse. This medicine does not prevent heart attack or stroke. In fact, this medicine may increase the chance of a heart attack or stroke. The chance may increase with longer use of this medicine and in people who have heart disease. If you take aspirin to prevent heart attack or stroke, talk with your doctor or health home care manager rn. Do not take other medicines that contain aspirin, ibuprofen, or naproxen with this medicine. Side effects such as stomach upset, nausea, or ulcers may be more likely to occur. Many medicines available without a prescription should not be taken with this medicine. This medicine can cause ulcers and bleeding in the stomach and intestines at any time during treatment. Ulcers and bleeding can happen without warning symptoms and can cause . To reduce your risk, do not smoke cigarettes or drink alcohol while you are taking this medicine. You may get drowsy or dizzy. Do not drive, use machinery, or do anything that needs mental alertness until you know how this medicine affects you. Do not stand or sit up quickly, especially if you are an older patient. This reduces the risk of dizzy or fainting spells. This medicine can cause you to bleed more easily. Try to avoid damage to your teeth and gums when you brush or floss your teeth. You have been given the following additional information: Pelvic Pain, Unknown Cause Bladder Infection, Female (Adult) Hydrocodone Bitartrate, Acetaminophen Oral tablet Cephalexin Monohydrate Oral tablet Ibuprofen Oral tablet (Electronically signed by Addison Pacheco Dr. 06/06/2016 7:14)
--- NOTE | 2016-06-06 07:15 | ED MAR SUMMARY ---
..... Medication Administration Record [facility] [address] [place] [address] Patient: DEBRA DYSON Visit ID: [id number] 25y, F Weight: 53.0 kg Height/Length: 64 in BMI: 20.1 ALLERGIES: No Known Drug Allergy Given 12:00 05/31/2016 Toñito Cartagena RDarynNDaryn Medication Administered: TYLENOL [PO] (ACETAMINOPHEN), Dose: 650 mg PO. Medication Ordered: Tylenol PO 650 mg (NOW). Given 14:39 05/31/2016 Jase Sands R.N. Medication Administered: TORADOL [IVP], Dose: 30 mg IVP over 2 minute(s), Site: #1 right AC. Medication Ordered: Toradol IV 30 mg (NOW). Given 14:43 05/31/2016 Jase Sands R.N. Medication Administered: KEFLEX [PO] (CEPHALEXIN), Dose: 500 mg Tablets PO. Medication Ordered: Keflex PO 500 mg (NOW).
--- NOTE | 2016-06-06 07:15 | ED MAR SUMMARY ---
..... Medication Administration Record [facility] [address] [place] [place] [address] Patient: DEBRA DYOSN Visit ID: [id number] 25y, F Weight: 53.0 kg Height/Length: 64 in BMI: 20.1 ALLERGIES: No Known Drug Allergy Given 12:00 05/31/2016 Toñito Cartagena RDarynNDaryn Medication Administered: TYLENOL [PO] (ACETAMINOPHEN), Dose: 650 mg PO. Medication Ordered: Tylenol PO 650 mg (NOW). Given 14:39 05/31/2016 Jase Sands R.N. Medication Administered: TORADOL [IVP], Dose: 30 mg IVP over 2 minute(s), Site: #1 right AC. Medication Ordered: Toradol IV 30 mg (NOW). Given 14:43 05/31/2016 Jase Sands R.N. Medication Administered: KEFLEX [PO] (CEPHALEXIN), Dose: 500 mg Tablets PO. Medication Ordered: Keflex PO 500 mg (NOW).
--- NOTE | 2016-06-06 07:15 | ED MED RECONCILIATION SUMMARY ---
Patient: DEBRA DYSON Medication Reconciliation Report [facility] VisitID: [id number] [place] [address] 25y, F Registration Date/Time: 05/31/2016 Weight: 53.0 kg Height/Length: 64 in. BMI: 20.1 ALLERGIES: No Known Drug Allergy The patient's Home Medications are listed below: CONTINUE TAKING THE FOLLOWING MEDICATIONS: Control Pills 1 pill, daily Spironolactone Oral, at bedtime, Takes for acne The source(s) of the original Home Medication information: patient The following Medications were given to the patient in the Emergency Department: Toradol [IVP] IVP 30 mg, administered: 05/31/2016 2:39:00 PM Keflex [PO] PO 500 mg, administered: 05/31/2016 2:43:00 PM Tylenol [PO] PO 650 mg, administered: 05/31/2016 12:00:00 PM The following Medications were prescribed to the patient: [place] 5 mg / 325 mg tablets: take 1 orally every 6 hours as needed for pain. Dispense twelve (12). No refill. Substitution is permissible. -- Addison Pacheco Dr. Keflex 500 mg: take 1 capsule orally every 8 hours for 5 days. No refill. Substitution is permissible.(disp 15 caps) -- Addison Pacheco Dr. Motrin 600 mg tablets: take 1 tablet orally as needed for pain or stiffness. Dispense thirty (30). No refill. Substitution is permissible. -- Addison Pacheco Dr.
--- NOTE | 2016-06-06 07:15 | ED MED RECONCILIATION SUMMARY ---
Patient: DEBRA DYSON Medication Reconciliation Report [facility] VisitID: [id number] [place] [address] 25y, F Registration Date/Time: 05/31/2016 Weight: 53.0 kg Height/Length: 64 in. BMI: 20.1 ALLERGIES: No Known Drug Allergy The patient's Home Medications are listed below: CONTINUE TAKING THE FOLLOWING MEDICATIONS: Control Pills 1 pill, daily Spironolactone Oral, at bedtime, Takes for acne The source(s) of the original Home Medication information: patient The following Medications were given to the patient in the Emergency Department: Toradol [IVP] IVP 30 mg, administered: 05/31/2016 2:39:00 PM Keflex [PO] PO 500 mg, administered: 05/31/2016 2:43:00 PM Tylenol [PO] PO 650 mg, administered: 05/31/2016 12:00:00 PM The following Medications were prescribed to the patient: [place] 5 mg / 325 mg tablets: take 1 orally every 6 hours as needed for pain. Dispense twelve (12). No refill. Substitution is permissible. -- Addison Pacheco Dr. Keflex 500 mg: take 1 capsule orally every 8 hours for 5 days. No refill. Substitution is permissible.(disp 15 caps) -- Addison Pacheco Dr. Motrin 600 mg tablets: take 1 tablet orally as needed for pain or stiffness. Dispense thirty (30). No refill. Substitution is permissible. -- Addison Pacheco Dr.
== END 2016-05-31 14:50 | disposition home or self-care (01) ==
LOC: ED SRH 11:06
DX: N39.0 Urinary tract infection, site not specified (principal); R31.9 Hematuria, unspecified; R10.2 Pelvic and perineal pain
CPT/HCPCS: 90004; 90100; 90195; 90197; 90469; 91227; 91228; 93070; 95059